=== PATIENT | female | born 1985 ===

== ENCOUNTER 2024-12-14 11:45 | Inpatient (IN) | payer OTHER ==
[~2024-12-14] VITALS: Ht 160 cm; Wt 68.0 kg
[2024-12-14] MEDS ORDERED: NORVASC5 MG PO (12:46)
[2024-12-14] MEDS ORDERED: PROTONIX40 MG PO (12:46)
[2024-12-14 12:47] VITALS: BP 146/96
[2024-12-24] MEDS ORDERED: CEFAZOLIN SODIUM 1,000 MG VIAL ONE (08:35)
[2024-12-24] MEDS ORDERED: POVIDONE-IODINE 118 ML BOTT TOP ONE (08:42)
[2024-12-24] MEDS ORDERED: SURGIFLO APPLICATOR 1 EACH APPL TOP ONE (11:36)
[2024-12-24] MEDS ORDERED: HEMOSTATIC MATRIX 1 KIT KIT TOP ONE (11:36)
[2024-12-24] MEDS ORDERED: SUGAMMADEX SODIUM 200 MG/2 ML VIAL IV ONE (12:02)
[2024-12-24] MEDS ORDERED: RINGERS SOLUTION,LACTATED 1,000 ML IV SCH (12:30)
[2024-12-24] MEDS ORDERED: MORPHINE SULFATE 4 MG/ML CARTRIDGE IV PRN (12:30)
[2024-12-24] MEDS ORDERED: ONDANSETRON HCL 2 MG/ML VIAL IV PRN (12:30)
[2024-12-24 16:13] VITALS: BP 137/94
[2024-12-24 16:29] LABS: BASO % 0.2 % (0.1-1.2); EOS # 0.00 (0.04-0.54); EOS % 0.0 % (0.7-7.0); LYMPH # 1.01 (1.18-3.74); LYMPH % 7.8 % (19.3-53.1); MEAN PLATELET VOLUME 9.80 fl (9.4-12.4); MONO # 0.66 (0.24-0.82); MONO % 5.1 % (4.7-12.5); NEUT # 11.23 (1.56-6.13); NEUT % 86.4 % (34.0-71.1); RED CELL DISTRIBUTION WIDTH 12.0 % (11.6-14.4)
[2024-12-24] MEDS ORDERED: CEFAZOLIN SODIUM 1,000 MG VIAL IV SCH (18:00)
[2024-12-24 23:46] VITALS: BP 100/63
[2024-12-25] MEDS ORDERED: KETOROLAC TROMETHAMINE 30 MG VIAL IV PRN (01:15)
[2024-12-25 04:30] VITALS: BP 101/64
[2024-12-25] MEDS ORDERED: IBU800 MG PO (06:52)
[2024-12-25] MEDS ORDERED: SIMETHICONE80 MG PO (06:53)
[2024-12-25 08:16] VITALS: BP 102/67
[2024-12-25] MEDS ORDERED: ENOXAPARIN SODIUM 40 MG/0.4 ML SYRINGE SUBCUTANEO SCH (09:00)
== END 2024-12-25 11:00 | disposition home or self-care (01) | DRG 743 ==
LOC: O/R 12-24 07:00 → SURH 12-24 08:45 → OB/GYN 12-24 13:19
PROVIDERS: ADMIT Obstetrics & Gynecology Gynecology; ATTEND Obstetrics & Gynecology Gynecology
PROC: 0UT94ZZ Resection of Uterus, Percutaneous Endoscopic Approach (ICD-10-PCS; principal; 2024-12-24 08:45)
DX: D25.9 Leiomyoma of uterus, unspecified (principal); N80.03 Adenomyosis of the uterus; R10.20 Pelvic and perineal pain unspecified side; N92.1 Excessive and frequent menstruation with irregular cycle